=== PATIENT | male | born 1950 ===

== ENCOUNTER → 2020-03-19 16:55 | Outpatient (REF) | payer MEDICARE, SELFPAY | LOC: ANHLAB 16:55 | PROVIDERS: Visit Provider Surgery Plastic and Reconstructive Surgery | DX: C43.39 Malignant melanoma of other parts of face (principal) | CPT/HCPCS: 88305; 88342 ==

== ENCOUNTER → 2020-04-23 16:20 | Outpatient (REF) | payer MEDICARE, SELFPAY | LOC: ANHLAB 16:20 | PROVIDERS: PCP Family Medicine; Visit Provider Surgery Plastic and Reconstructive Surgery | DX: C43.9 Malignant melanoma of skin, unspecified (principal) | CPT/HCPCS: 88305; 88342 ==